=== PATIENT | male | born 1950 | race Caucasian/White ===

== ENCOUNTER 2022-08-17 04:15 | Emergency (ER) | payer BC, MEDICARE ==
[2022-08-17] MEDS ORDERED: KETOROLAC 15 MG/ML 1 ML VIAL IVP STA (04:34)
[2022-08-17] MEDS ORDERED: HYDROmorphone 0.5 MG/0.5 ML SYRINGE IVP STA ×2 (04:34→06:34)
--- NOTE | 2022-08-17 04:49 | ED ---
General Adult HPI - General Chief complaint: Abdominal Pain Stated complaint: Left Side abd pain Time Seen by Provider: 08/17/22 04:27 Source: patient, family, RN notes reviewed, old records reviewed Mode of arrival: ambulatory Limitations: no limitations - History of Present Illness Initial comments: 72 -year-old male presenting for evaluation of left flank pain. Pain began approximately 24 hours ago and has been intermittent. No dysuria or hematuria. Patient denies vomiting. No fever. - Related Data Home Medications Medication Instructions Recorded Confirmed Cyclobenzaprine [Flexeril] 10 mg PO DAILY 04/23/15 04/24/15 predniSONE [Deltasone] 20 mg PO DIRECTED 04/23/15 04/24/15 Previous Rx's Medication Instructions Recorded HYDROcodone/APAP 5-325MG [[place] 1 tab PO Q4HR PRN #18 tab 08/17/22 5-325] Allergies Allergy/AdvReac Type Severity Reaction Status Date / Time ciprofloxacin [From Cipro] Allergy Severe Rash/Hives Verified 08/17/22 04:22 ciprofloxacin HCl Allergy Severe Rash/Hives Verified 08/17/22 04:22 [From Cipro] Sulfa (Sulfonamide Allergy Severe Rash/Hives Verified 08/17/22 04:22 Antibiotics) Review of Systems ROS Statement: Those systems with pertinent positive or pertinent negative responses have been documented in the HPI. ROS Other: All systems not noted in ROS Statement are negative. Past Medical History Additional Past Medical History / Comment(s): arthritis in neck History of Any Multi-Drug Resistant Organisms: None Reported Past Surgical History: Orthopedic Surgery, Tonsillectomy Additional Past Surgical History / Comment(s): rotator cuff-left shoulder, Past Anesthesia/Blood Transfusion Reactions: No Reported Reaction Past Psychological History: No Psychological Hx Reported Smoking Status: Current every day smoker Past Alcohol Use History: Occasional Past Drug Use History: Marijuana - Past Family History Mother Family Medical History: No Reported History General Exam Limitations: no limitations General appearance: alert, in no apparent distress Head exam: Present: atraumatic, normocephalic Eye exam: Present: normal appearance, PERRL ENT exam: Present: normal exam Neck exam: Present: normal inspection. Absent: tenderness, meningismus Respiratory exam: Present: normal lung sounds bilaterally. Absent: respiratory distress, wheezes Cardiovascular Exam: Present: regular rate, normal rhythm GI/Abdominal exam: Present: soft. Absent: distended, tenderness, guarding Extremities exam: Present: normal inspection Back exam: Absent: CVA tenderness (R), CVA tenderness (L) Neurological exam: Present: alert, oriented X3, CN II-XII intact. Absent: motor sensory deficit Psychiatric exam: Present: normal affect, normal mood Skin exam: Present: warm, dry, intact. Absent: cyanosis, diaphoretic Course Vital Signs 08/17/22 04:23 Temperature 98.2 F Pulse Rate 67 Respiratory 18 Rate Blood Pressure 135/75 O2 Sat by Pulse 96 Oximetry - Reevaluation(s) Reevaluation #1: 08/17/22 07:13 CT urogram has been ordered, results pending Medical Decision Making - Medical Decision Making Was pt. sent in by a medical professional or institution (, [facility], [facility]ERY [facility], urgent care, hospital, or [facility]...) When possible be specific @ -No Did you speak to anyone other than the patient for history (EMS, parent, family, police, friend...)? What history was obtained from this source @ Patient's Did you review nursing and triage notes (agree or disagree)? Why? @ -I reviewed and agree with nursing and triage notes Were old charts reviewed (outside hosp., previous admission, EMS record, old EKG, old radiological studies, urgent care reports/EKG's, [facility] records)? Report findings @ -No old charts were reviewed Differential Diagnosis (chest pain, altered mental status, abdominal pain women, abdominal pain men, vaginal bleeding, weakness, fever, dyspnea, syncope, headache, dizziness, GI bleed, back pain, seizure, CVA, palpatations, mental health, musculoskeletal)? @ Differential Abdominal Pain Men: Appendicitis, cholecystitis, diverticulosis, ischemic bowel, pancreatitis, hepatitis, UTI, gastroenteritis, AAA, incarcerated hernia, bowel obstruction, constipation, inflammatory bowel, hepatitis, peptic ulcer disease, splenic infarction, perforated viscus, testicular torsion, this is not meant to be an all-inclusive list EKG interpreted by me (3pts min.). @ -As above X-rays interpreted by me (1pt min.). @ -None done CT interpreted by me (1pt min.). @ -Left sided hydronephrosis and hydroureter without definitive calcium containing stone, fullness in the left side of the bladder concerning for neoplasm U/S interpreted by me (1pt. min.). @ -None done What testing was considered but not performed or refused? (CT, X-rays, U/S, labs)? Why? @ -None What meds were considered but not given or refused? Why? @ -None Did you discuss the management of the patient with other professionals (professionals i.e. Dr., PA, HATCHERY MAN, lab, RT, psych nurse, clinical social work therapist, block cleaner, teacher, chief informatics officer, welfare case worker)? Give summary @ -Discussed the case with Dr. Penn, recommend CT urogram for better characterization and close outpatient follow-up. Was smoking cessation discussed for >3mins.? @ -No Was critical care preformed (if so, how long)? @ -No Were there social determinants of health that impacted care today? How? (Homelessness, low income, unemployed, alcoholism, drug addiction, transportation, low edu. Level, literacy, decrease access to med. care, usp, rehab)? @ -No Was there de-escalation of care discussed even if they declined (Discuss DNR or withdrawal of care, Hospice)? DNR status @ -No What co-morbidities impacted this encounter? (DM, HTN, Smoking, COPD, CAD, Cancer, CVA, ARF, Chemo, Hep., AIDS, mental health diagnosis, sleep apnea, morbid obesity)? @ Tobacco use Was patient admitted / discharged? Hospital course, mention meds given and route, prescriptions, significant lab abnormalities, going to OR and other pertinent info. @ -72-year-old male presenting for evaluation of left flank pain, history is concerning for renal colic. Workup was initiated including CBC, CMP, urinalysis. As well as KUB x-ray and CT abdomen and pelvis without contrast. There is a fullness in the left side of the bladder and left hydroureter and hydronephrosis. After discussion with urology CT urogram has been ordered these results are pending. The patient will be given [place] for pain control and will have close outpatient follow-up with urology. Undiagnosed new problem with uncertain prognosis? @ -No Drug Therapy requiring intensive monitoring for toxicity (Heparin, Nitro, Insulin, Cardizem)? @ -No Were any procedures done? @ -No Diagnosis/symptom? @ Bladder mass, hydronephrosis Acute, or Chronic, or Acute on Chronic? @ Acute Uncomplicated (without systemic symptoms) or Complicated (systemic symptoms)? @ -default Side effects of treatment? @ -No Exacerbation, Progression, or Severe Exacerbation? @ -No Poses a threat to life or bodily function? How? (Chest pain, USA, VT, pneumonia, PE, COPD, DKA, ARF, appy, cholecystitis, CVA, Diverticulitis, Homicidal, Suicidal, threat to staff... and all critical care pts) @ -[Yes, concerning for neoplasm - Lab Data Result diagrams: 08/17/22 05:00 08/17/22 05:00 Lab Results 08/17/22 08/17/22 08/17/22 Range/Units 05:00 05:00 05:00 WBC 12.4 H (3.8-10.6) k/uL RBC 5.74 (4.30-5.90) m/uL Hgb 18.2 H (13.0-17.5) gm/dL Hct 53.7 H (39.0-53.0) % MCV 93.6 (80.0-100.0) fL MCH 31.8 (25.0-35.0) pg MCHC 34.0 (31.0-37.0) g/dL RDW 13.1 (11.5-15.5) % Plt Count 173 (150-450) k/uL MPV 8.1 Neutrophils % 86 % Lymphocytes % 8 % Monocytes % 4 % Eosinophils % 1 % Basophils % 0 % Neutrophils # 10.6 H (1.3-7.7) k/uL Lymphocytes # 1.0 (1.0-4.8) k/uL Monocytes # 0.5 (0-1.0) k/uL Eosinophils # 0.1 (0-0.7) k/uL Basophils # 0.0 (0-0.2) k/uL Sodium 138 (137-145) mmol/L Potassium 4.5 (3.5-5.1) mmol/L Chloride 105 (98-107) mmol/L Carbon Dioxide 20 L (22-30) mmol/L Anion Gap 13 mmol/L BUN 26 H (9-20) mg/dL Creatinine 1.27 H (0.66-1.25) mg/dL Est GFR (CKD-EPI)AfAm 65 (>60 ml/min/1.73 sqM) Est GFR (CKD-EPI)NonAf 56 (>60 ml/min/1.73 sqM) Glucose 118 H (74-99) mg/dL Calcium 9.6 (8.4-10.2) mg/dL Total Bilirubin 1.1 (0.2-1.3) mg/dL AST 31 (17-59) U/L ALT 19 (4-49) U/L Alkaline Phosphatase 94 (38-126) U/L Total Protein 7.6 (6.3-8.2) g/dL Albumin 4.5 (3.5-5.0) g/dL Urine Color Yellow Urine Appearance Clear (Clear) Urine pH 5.0 (5.0-8.0) Ur Specific [place] 1.015 (1.001-1.035) Urine Protein Trace H (Negative) Urine Glucose (UA) Negative (Negative) Urine Ketones 2+ H (Negative) Urine Blood Moderate H (Negative) Urine Nitrite Negative (Negative) Urine Bilirubin Negative (Negative) Urine Urobilinogen <2.0 (<2.0) mg/dL Ur Leukocyte Esterase Trace H (Negative) Urine RBC 24 H (0-5) /hpf Urine WBC 8 H (0-5) /hpf Ur Squamous Epith Cells 1 (0-4) /hpf Urine Mucus Occasional H (None) /hpf Disposition Clinical Impression: Hydronephrosis, Bladder mass Disposition: HOME SELF-CARE Condition: Fair Instructions (If sedation given, give patient instructions): Hydronephrosis (ED) Additional Instructions: Please follow up with urology Prescriptions: HYDROcodone/APAP 5-325MG [[place] 5-325] 1 tab PO Q4HR PRN #18 tab PRN Reason: Pain Is patient prescribed a controlled substance at d/c from ED?: No Referrals: None,Stated [Primary Care Provider] - 1-2 days Car Penn MD [STAFF PHYSICIAN] - 1-2 days Time of Disposition: 07:30
[2022-08-17 05:14] LABS: Appearance,Urine Clear (Clear); Bilirubin,Urine Negative (Negative); Blood,Urine Moderate (Negative); Color,Urine Yellow; Glucose,Urine (UA) Negative (Negative); Ketones,Urine 2+ (Negative); Leukocyte Esterase,Urine Trace (Negative); Nitrite,Urine Negative (Negative); Protein,Urine Trace (Negative); Specific Gravity,Urine 1.015 (1.001-1.035); Urobilinogen,Urine <2.0 mg/dL (<2.0)
[2022-08-17 05:15] LABS: Basophils % (A) 0 %; Eosinophils # (A) 0.1 k/uL (0-0.7); Eosinophils % (A) 1 %; HCT 53.7 % (39.0-53.0); HGB 18.2 gm/dL (13.0-17.5); Lymphocytes % (A) 8 %; MCH 31.8 pg (25.0-35.0); MCV 93.6 fL (80.0-100.0); Mean Platelet Volume 8.1; Monocytes # (A) 0.5 k/uL (0-1.0); Monocytes % (A) 4 %; Mucus,Urine Occasional /hpf; Neutrophils # (A) 10.6 k/uL (1.3-7.7); Neutrophils % (A) 86 %; Platelet Count 173 k/uL (150-450); RBC 5.74 m/uL (4.30-5.90); RBC,Urine 24 /hpf (0-5); RDW 13.1 % (11.5-15.5); Squamous Epithelial Cell,Urine 1 /hpf (0-4); WBC 12.4 k/uL (3.8-10.6); WBC,Urine 8 /hpf (0-5)
[2022-08-17 05:26] LABS: Albumin 4.5 g/dL (3.5-5.0); Calcium 9.6 mg/dL (8.4-10.2); Potassium 4.5 mmol/L (3.5-5.1); Total Bilirubin 1.1 mg/dL (0.2-1.3); Total Protein 7.6 g/dL (6.3-8.2)
[2022-08-17] MEDS ORDERED: SODIUM CHLORIDE 0.9% 1,000 ML IV ONE (05:27)
--- NOTE | 2022-08-17 06:29 | CT ---
EXAM: CT Abdomen and Pelvis Without Intravenous Contrast CLINICAL HISTORY: left flank pain TECHNIQUE: Axial computed tomography images of the abdomen and pelvis without intravenous contrast. CTDI is 11.8 mGy and DLP is 734 mGy-cm. This CT exam was performed using one or more of the following dose reduction techniques: automated exposure control, adjustment of the mA and/or kV according to patient size, and/or use of iterative reconstruction technique. COMPARISON: No relevant prior studies available. FINDINGS: Lung bases: Bibasilar atelectasis. Calcified granulomas are noted within both lower lobes. ABDOMEN: Liver: Unremarkable. Gallbladder and bile ducts: Unremarkable. No calcified stones. No ductal dilation. Pancreas: Unremarkable. No ductal dilation. Spleen: Unremarkable. No splenomegaly. Adrenals: Unremarkable. No mass. Kidneys and ureters: Mild/moderate left-sided hydronephrosis without evidence of an obstructing ureteral stone. There appears to be eccentric left-sided urinary bladder wall thickening suggesting underlying malignancy. Stomach and bowel: Severe colonic diverticulosis, predominantly involving the sigmoid segment. No obstruction. No mucosal thickening. PELVIS: Appendix: No findings to suggest acute appendicitis. Bladder: See above Reproductive: Prostatomegaly, measuring up to 5.6 cm in greatest transverse dimension. ABDOMEN and PELVIS: Intraperitoneal space: Unremarkable. No free air. No significant fluid collection. Bones/joints: Evaluation of the osseous structures demonstrates moderate degenerative changes. Mild dextroscoliosis of the lumbar spine. No acute fracture. No dislocation. Soft tissues: Tiny bilateral fat-containing inguinal hernias. Vasculature: Moderate atherosclerotic vascular calcifications involving the intra-abdominal aorta and the iliac branches. Infrarenal aorta is at the upper limits of normal, measuring 2.5 cm in diameter. Lymph nodes: No significant adenopathy, allowing for lack of IV contrast. IMPRESSION: 1. Mild/moderate left-sided hydronephrosis without evidence of an obstructing ureteral stone. There appears to be eccentric left-sided urinary bladder wall thickening suggesting underlying malignancy. Nonemergent hematuria protocol CT is recommended for further evaluation. 2. Prostatomegaly. Correlate with PSA. 3. Severe colonic diverticulosis, predominantly involving the sigmoid segment. 4. Other findings as above.
--- NOTE | 2022-08-17 06:51 | XR ---
EXAM: XR Abdomen, 1 View CLINICAL HISTORY: abdominal pain TECHNIQUE: Frontal supine view of the abdomen/pelvis. COMPARISON: CT of the abdomen/pelvis performed after this exam. FINDINGS/IMPRESSION: Please refer to the comparison study.
[2022-08-17 08:19] VITALS: BP 138/86; PULSE 53; RESP 19; TEMP 97.3
--- NOTE | 2022-08-17 09:01 | CT ---
EXAMINATION TYPE: CT urogram wo/w con DATE OF EXAM: 08/17/2022 COMPARISON: CT earlier today. HISTORY: Bladder mass with left-sided hydronephrosis. Recent abnormal CT. CT DLP: 1523 mGycm, Automated Exposure Control for Dose Reduction was Utilized. CONTRAST: CT scan of the abdomen and pelvis is performed without oral and with IV Contrast, patient injected wi th 100 mL of Isovue 370. Urogram protocol with 3-D reconstructed images created on an independent wor kstation and reviewed. FINDINGS: KUB: Noncontrast images earlier today showed no renal calculi bilaterally. Postcontrast images show s ymmetric cortical medullary uptake and excretion with persistent mild to moderate left-sided hydronep hrosis. No right-sided hydronephrosis. There is a 5 mm simple appearing thin-walled cyst laterally le ft kidney coronal image 68 series 302. Incomplete opacification of the bilateral ureters particularly left ureter. No obstructing calculi clearly seen. Distal right ureter jet is seen. Distal left jet n ot identified. Abnormal soft tissue density in the distal left ureter right before bladder orifice ov er roughly 1.4 cm length axial image 79 series 301. No definitive intraluminal bladder mass. There is enlarged lobulated prostate bulging on the posterior inferior bladder base making evaluation slightl y suboptimal. LUNG BASES: Worsening dependent atelectasis on current study. Posterior calcified nodules are benign granulomas are incidentally redemonstrated. LIVER/GB: There is subcentimeter low dense lesion axial image 20 series 201 that is too small to furt her characterize but presumed benign. PANCREAS: No significant abnormality is seen. SPLEEN: Upper limits of normal in size. ADRENALS: No significant abnormality is seen. BOWEL: Sigmoid colonic diverticulosis redemonstrated. PROSTATE/SEMINAL VESICLES: Enlarged lobulated prostate consistent with BPH. LYMPH NODES: No greater than 1cm abdominal or pelvic lymph nodes are appreciated. OSSEOUS STRUCTURES: Scoliosis is present. Moderate to severe disc space narrowing and spurring and va cuum disc phenomenon at left L1-L2, left L2-L3, and right L4-L5 levels. OTHER: Moderate mixed plaque in infrarenal abdominal aorta extends into iliac branch vessels. Small f at-containing umbilical hernia IMPRESSION: Persistent mild to moderate left-sided hydronephrosis without delayed excretion. Enlarged prostate consistent with BPH is redemonstrated. Abnormal soft tissue in the distal left ureter right before UVJ. Differential includes blood clot but neoplasm or transitional cell carcinoma needs to be excluded and further investigation with direct visualization is advised. No definitive bladder mass. No abnormal adenopathy or metastatic disease.
== END 2022-08-17 08:48 | disposition home or self-care (01) ==
LOC: EC 04:15
DX: N13.30 Unspecified hydronephrosis (principal); N32.9 Bladder disorder, unspecified; F17.200 Nicotine dependence, unspecified, uncomplicated; F12.90 Cannabis use, unspecified, uncomplicated; Z88.1 Allergy status to other antibiotic agents; Z88.2 Allergy status to sulfonamides
CPT/HCPCS: 99284 ×2; 96374 ×2; 96375 ×2; 96376 ×2; 96361 ×2; 36415; 80053; 85025; 81001; 74018; 74176; 74178; 74400; J1885; J1170; Q9967

== ENCOUNTER → 2022-09-16 | Outpatient (CLI) | payer MEDICARE ==
--- NOTE | 2022-09-18 09:44 | PE ---
EXAMINATION TYPE: PET CT fusion skull to thigh DATE OF EXAM: 09/16/2022 CLINICAL INDICATION:Male, 72 years old with history of C61; TECHNIQUE: Following the intravenous administration of 6.18 mCi of Ga-68 Illuccix (PSMA), whole bod y images are performed from the skull base to the midthigh. Images are reviewed on the computer in t he coronal, axial, and sagittal planes. Reconstructed rotating images are created on independent wor kstation and reviewed on the computer. A non-contrast CT is performed in conjunction with the PET s can. COMPARISON: CT 08/17/2022, PET/CT None, FINDINGS: Mediastinal SUV mean is 0.5. Hepatic parenchyma SUV mean is 2.8. SKULL BASE AND NECK: No suspicious radiotracer activity. CHEST, MEDIASTINUM, AND HILAR REGION: No suspicious radiotracer activity. ABDOMEN AND PELVIS: * Left prostate gland activity max SUV 26.6. Measuring 2.9 x 1.6 cm. * Pelvic lymph nodes with abnormal FDG activity including right external iliac lymph node measuring 14 mm Max SUV 19.2 * Left external iliac lymph node measuring 14 mm and max SUV 11.3 MUSCULOSKELETAL STRUCTURES: Scattered abnormal uptake throughout the osseous structures. Example incl udes: * Left skull base left temporal bone max SUV 10.9. * Right scapula max SUV 6.6. * Left scapula max SUV 11.9. * Right glenoid and max SUV 17.0. * Left glenoid max SUV 11.6. * Right rib 8 Max SUV 7.6. * Right sacrum max SUV 21.9. * Left iliac bone max SUV 21.1. * Right iliac bone max SUV 14.7. * Left femur max SUV 12.9. * Right femur max SUV 12.6. * Right inferior pubic ramus max SUV 16.3. * L5 vertebral body max SUV 21.4. * T10 vertebral body max is a 34.9. OTHER CT: Atherosclerosis of the arterial vasculature. Left ureteral stent with tips in appropriate p osition. Colonic diverticulosis. Estimated gland is enlarged. The heart is mildly enlarged for size. Mild emphysema changes. Posterior dependent atelectasis/scarring. 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
== END | disposition home or self-care (01) ==
LOC: RADPETMAIN 10:13
PROVIDERS: ATTEND Urology
DX: C61 Malignant neoplasm of prostate (principal); R59.0 Localized enlarged lymph nodes
CPT/HCPCS: 78815; A9596

== ENCOUNTER → 2023-01-03 | Outpatient (CLI) | payer MEDICARE ==
--- NOTE | 2023-01-03 13:30 | US ---
EXAMINATION TYPE: US venous doppler duplex LE DATE OF EXAM: 01/03/2023 1:21 PM COMPARISON: NONE CLINICAL INDICATION: Male, 72 years old with history of M79.661, M79.662 pain, R22.41, R22.42; edema on chemo SIDE PERFORMED: Bilateral TECHNIQUE: The lower extremity deep venous system is examined utilizing real time linear array sonog efrain with graded compression, doppler sonography and color-flow sonography. VESSELS IMAGED: Common Femoral Vein Deep Femoral Vein Greater Saphenous Vein * Femoral Vein Popliteal Vein Small Saphenous Vein * Proximal Calf Veins (* superficial vessels) Grayscale, color doppler, spectral doppler imaging performed of the deep veins of the lower extremiti es. There is normal flow, compressibility, vascular waveforms. Right Leg: Negative for DVT Left Leg: Negative for DVT IMPRESSION: No deep venous thrombosis of the bilateral lower extremities.
== END | disposition home or self-care (01) ==
LOC: RADUSWWP 12:59
PROVIDERS: ATTEND Internal Medicine Hematology & Oncology
DX: M79.661 Pain in right lower leg (principal); M79.662 Pain in left lower leg
CPT/HCPCS: 93970

== ENCOUNTER → 2023-01-27 | Outpatient (CLI) | payer MEDICARE ==
[~2023-01-27] MED LIST: FUROSEMIDE 10 MG/ML 2 ML VIAL IV ONE
--- NOTE | 2023-01-27 14:36 | NM ---
EXAMINATION TYPE: NM lasix renogram DATE OF EXAM: 01/27/2023 COMPARISON: NONE CLINICAL INDICATION: Male, 72 years old with history of N13.30 HYDRONEPHROSIS; Following administration of 10.74 mCi Tc 99m MAG3 with 20mg Lasix. Immediate images post injection FINDINGS: Left: 26.7 %. Right: 73.3 %. Max renal flow left: 6.5 minutes. Max renal flow right: 5.5 minutes. Satisfactory accumulation of radiotracer within both renal collecting systems. After the administrati on of Lasix, there is prompt excretion from both collecting systems. T 1/2 left: NA minutes. T 1/2 right: 17.2 minutes. IMPRESSION: 1. Markedly abnormal split renal function of 73.3% on the right and 26.7% on the left. 2. Markedly abnormal time activity curve of the left kidney with delayed uptake, and delayed excretio n. 3. Left hydronephrosis
== END | disposition home or self-care (01) ==
LOC: RADNMMAIN 12:40
PROVIDERS: ATTEND Urology
DX: N13.30 Unspecified hydronephrosis (principal)
CPT/HCPCS: 78708; A9562

== ENCOUNTER → 2023-06-09 | Outpatient (CLI) | payer MEDICARE ==
--- NOTE | 2023-06-09 14:51 | NM ---
EXAMINATION TYPE: NM lasix renogram DATE OF EXAM: 06/09/2023 COMPARISON: 01/27/2023 CLINICAL INDICATION: Male, 72 years old with history of N13.30 UNSPECIFIED HYDRONEPHROSIS; Following administration of 10 mCi Tc 99m MAG3 with 20mg Lasix. Immediate images post injection FINDINGS: Left: 14 %. Right: 86 %. Max renal flow left: 17 minutes. Max renal flow right: 2.5 minutes. Satisfactory accumulation of radiotracer within both renal collecting systems. After the administrati on of Lasix, there is prompt excretion from both collecting systems. T 1/2 left: NA minutes. T 1/2 right: NA minutes. IMPRESSION: 1. Markedly abnormal split renal function of 86 % on the right and 14 % on the left which has worsene d from prior. 2. Markedly abnormal time activity curve of the left kidney with delayed uptake, and delayed excretio n.
== END | disposition home or self-care (01) ==
LOC: RADNMMAIN 12:53
PROVIDERS: ATTEND Urology
DX: N13.30 Unspecified hydronephrosis (principal)
CPT/HCPCS: 78708; A9562

== ENCOUNTER → 2023-06-16 | Outpatient (CLI) | payer MEDICARE ==
[2023-06-16 12:45] LABS: African American GFR (CKD) 38 (>60 ml/min/1.73 sqM); Blood Urea Nitrogen 31 mg/dL (9-20); Non-African American GFR(CKD) 33 (>60 ml/min/1.73 sqM)
== END | disposition home or self-care (01) ==
LOC: RADCTMAIN 12:00
PROVIDERS: ATTEND Urology
DX: N13.30 Unspecified hydronephrosis (principal)
CPT/HCPCS: 82565; 84520

== ENCOUNTER → 2023-07-14 | Outpatient (CLI) | payer MEDICARE ==
--- NOTE | 2023-07-14 13:15 | CT ---
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 CT DLP: 604.3 mGycm. Automated exposure control for dose reduction was used. TECHNIQUE: Contiguous axial scanning of the abdomen and pelvis without IV contrast. Coronal and sagit isabel reconstructions performed. FINDINGS: Heart normal size without pericardial effusion. Some stranding groundglass changes in the lower lungs are unchanged, probably chronic scarring. Mild emphysematous change. Calcified granulomas right base in keeping with prior granulomatous disease. Small hiatal hernia. At least mild fatty infiltration of the liver. Tiny calcified granuloma posterior right liver lobe. Noncontrast appearance of the gallbladder, adrenal glands, right kidney, and pancreas show no gross e valuate by noncontrast CT. Thickened spleen at 5.7 cm versus 4.8 cm, previously. There is moderate distention of the left renal collecting system with a left ureteral stent in place. The proximal loop of the stent appears to be pulled down to the UPJ region. Prominent air distending throughout the left renal collecting system and left ureter. The distal loop of the left ureteral st ent has been pulled further into the bladder. Mild circumferential bladder wall thickening. There is nondependent air within the lumen of the bladd er and focal fistulous communication seen from the underside of the mid sigmoid colon to the left pos terior bladder dome, refer to coronal image 62 and axial images 75 through 77. Colonic diverticulosis with mild to moderate stool burden. No dilated small bowel, free fluid, or hill e air. Normal air-filled appendix. No mesenteric, retroperitoneal, or pelvic adenopathy by CT size criteria. We note that the lymph node s were very small on the patient's 09/16/2022 PET/CT as well. Bones: Diffuse sclerotic osseous metastases redemonstrated. Degenerative dextro convex scoliosis lumb ar spine. IMPRESSION: 1. Moderate air dilatation of the left renal collecting system and left ureter. As a result, the ind welling left ureteral stent has pulled down with the proximal loop located at the UPJ and distal loop further in the bladder. 2. Air within the bladder and left ureter secondary to colovesical fistula from the inferior margin of the mid sigmoid colon to the left posterior bladder dome. 3. Known diffuse sclerotic osseous metastases. No progressive lymphadenopathy or other abnormal soft tissue is identified. The previous soft tissue at the distal left ureter appears to have shown impro vement.
== END | disposition home or self-care (01) ==
LOC: RADCTMAIN 10:08
PROVIDERS: ATTEND Urology
DX: C79.51 Secondary malignant neoplasm of bone (principal); C80.1 Malignant (primary) neoplasm, unspecified; N32.1 Vesicointestinal fistula; N28.89 Other specified disorders of kidney and ureter; N32.89 Other specified disorders of bladder; Z96.0 Presence of urogenital implants
CPT/HCPCS: 74176

== ENCOUNTER → 2023-07-27 | Outpatient (CLI) | payer MEDICARE ==
--- NOTE | 2023-07-27 11:03 | XR ---
EXAMINATION TYPE: XR tibia fibula LT DATE OF EXAM: 07/27/2023 10:45 AM CLINICAL INDICATION:Male, 73 years old with history of C61 PROSTATE CA; COMPARISON: None TECHNIQUE: XR tibia fibula LT; tibia/fibula was examined in AP and lateral projections. FINDINGS: No evidence of any acute osseous pathology, joint dislocation, or soft tissue swelling is n oted. IMPRESSION: No evidence of acute fracture.
[2023-07-27 11:23] LABS: African American GFR (CKD) 50 (>60 ml/min/1.73 sqM); Blood Urea Nitrogen 34 mg/dL (9-20); Non-African American GFR(CKD) 43 (>60 ml/min/1.73 sqM)
--- NOTE | 2023-07-27 12:53 | CT ---
EXAMINATION TYPE: CT ChestAbdPelvis wo con CT DLP: 683.80 mGycm, Automated exposure control for dose reduction was used. DATE OF EXAM: 07/27/2023 12:40 PM COMPARISON: 07/14/2023, PET/CT 09/16/2022 CLINICAL INDICATION:Male, 73 years old with history of C61 PROSTATE CA; PHH, f/u prostate cancer Technique: CT ChestAbdPelvis wo con; Multiple axial images were obtained. Two-dimensional coronal and sagittal reconstructions were obtained. Contrast used: mL of , none Oral contrast used: with Oral Contrast Findings: CHEST: LUNGS/ PLEURA: Mild centrilobular emphysema changes are seen throughout the lungs. No new or enlargin g pulmonary nodules. No focal consolidation, pneumothorax or pleural effusion. Bilateral lower lobe c alcified granulomas. AIRWAY: Patent and unremarkable. HEART: Size within normal limits. Mild coronary artery calcifications. MEDIASTINUM: No gross evidence of adenopathy. VASCULATURE: No aortic aneurysm. MUSCULOSKELETAL: No acute osseous abnormalities. Scattered sclerotic metastatic foci throughout the o sseous structures. SOFT TISSUES/LYMPH NODES: Unremarkable. LOWER NECK: No significant findings. ABDOMEN: ABDOMEN LIVER: Unremarkable GALLBLADDER AND BILE DUCTS: Unremarkable. PANCREAS: Unremarkable. SPLEEN: Unremarkable. ADRENAL GLANDS: Unremarkable. KIDNEYS AND URETERS: Is dilation of the left collecting system with gas within and around the left pr oximal kidney. Left ureteral stent is in satisfactory position. PELVIS BLADDER: Gas is seen within the bladder lumen inferior stent pigtail in the bladder lumen. Ureteral t ip and similar position to prior. REPRODUCTIVE: Unremarkable. ABDOMEN & PELVIS STOMACH AND BOWEL: No evidence of bowel obstruction. Appendix is normal the lumen demonstrates gas. S cattered colonic diverticulosis. PERITONEUM: No evidence of pneumoperitoneum or free fluid. VASCULATURE: No evidence of aortic aneurysm. MUSCULOSKELETAL: Scattered sclerotic osseous metastatic foci seen throughout the exam. LYMPH NODES: No gross evidence for lymphadenopathy. SOFT TISSUE/ABDOMINAL WALL: Fat-containing bilateral inguinal hernias. IMPRESSION: 1. Extensive progression of Diffuse osseous metastatic disease with sclerotic foci throughout the os seous structures compared to 09/16/2022 2. Left ureteral stent with gas within the left renal collecting system. This is not significantly c hanged from prior exam. Correlate with recent instrumentation. Recent summation patient hasn't been p erformed correlate for ascending infection such as emphysematous pyelitis. 3. Colonic diverticulosis. 4. Fat-containing inguinal hernias. 5. Mild emphysema changes.
--- NOTE | 2023-07-28 07:48 | NM ---
EXAMINATION TYPE: NM bone scan whole body DATE OF EXAM: 07/27/2023 COMPARISON: CT 07/27/2023 CLINICAL INDICATION: Male, 73 years old with history of C61 PROSTATE CA; Delayed whole-body scanning was performed following the injection of 22.4 mCi Tc 99m MDP. Images acq uired 3 hours post injection. FINDINGS: There are scattered areas of abnormal uptake involving the rib cage, proximal femur, pelvic bones and vertebral column concordant with the CT findings of metastatic disease. Abnormal uptake involving th e shoulders\scapula low intensity but concordant with metastases. Abnormal uptake involving the wrists, right ankle and medial left knee most likely post arthritic. IMPRESSION: Diffuse osseous metastases concordant with CT scan.
== END | disposition home or self-care (01) ==
LOC: RADNMMAIN 10:13
PROVIDERS: ATTEND Internal Medicine Hematology & Oncology
DX: Z03.89 Encounter for observation for other suspected diseases and conditions ruled out (principal); C79.51 Secondary malignant neoplasm of bone; C61 Malignant neoplasm of prostate; J43.2 Centrilobular emphysema; K57.30 Diverticulosis of large intestine without perforation or abscess without bleeding; K40.90 Unilateral inguinal hernia, without obstruction or gangrene, not specified as recurrent; G89.3 Neoplasm related pain (acute) (chronic); Z96.0 Presence of urogenital implants
CPT/HCPCS: 82565; 84520; 73590; 71250; 74176; 36415; 78306; A9503

== ENCOUNTER → 2024-01-26 | Outpatient (CLI) | payer MEDICARE ==
[2024-01-26 10:33] LABS: African American GFR (CKD) 51 (>60 ml/min/1.73 sqM); Blood Urea Nitrogen 34 mg/dL (9-20); Non-African American GFR(CKD) 44 (>60 ml/min/1.73 sqM)
--- NOTE | 2024-01-26 12:13 | CT ---
EXAMINATION TYPE: CT ChestAbdPelvis w con DATE OF EXAM: 01/26/2024 COMPARISON: 07/27/2023 HISTORY: hx of prostate ca. pt had a tumor removed from his bladder and has a stent up to his kidneys . CT DLP: 1896 mGycm Automated exposure control for dose reduction was used. CONTRAST: CT scan of the chest, abdomen and pelvis is performed with Oral Contrast and with IV Contrast, patien t injected with 80ml mL of Isovue 300. FINDINGS: CT chest: There are moderate emphysematous changes. There is no suspicious lung mass or nodule. There is no abnormal airspace/consolidative density or abnormal interstitial density. There is no pleural effusion, pleural thickening or pneumothorax. The great vessels and chest are normal. There is a stable single low density 12 mm prevascular lymph node. There are multiple sclerotic lesions in the thoracic spine and sternum and multiple ribs consistent w ith metastatic prostate cancer. There are no pathological fractures. CT abdomen and pelvis: Gallbladder is normal without distention, pericholecystic fluid, wall thickening or gallstone. There is no biliary ductal dilatation. There is no focal mass or organomegaly involving the liver, pancreas, spleen or adrenal glands. There is steatosis of the liver. There is no solid renal mass or hydronephrosis. The left kidney is mildly atrophic and there is a lef t double-J ureteral stent and chronic hydronephrosis and hydroureter on the left. The right kidney is unremarkable. There is no retroperitoneal adenopathy or hemorrhage in the caliber of the abdominal aorta is normal. The bowel loops are normal in caliber and there is no dilatation or obstruction. No inflammatory calhoun ges identified in the bowel wall and mesentery. There is no free intracranial air or fluid. There is no pelvic mass or adenopathy. There is no free fluid within the pelvis. There are multiple sclerotic metastasis within the lumbar spine, pelvis and hips but no pathological fracture. Soft tissue the abdomen and pelvis are normal. IMPRESSION: 1. Diffuse sclerotic metastasis in all of the visualized osseous structures. There are no pathologica l fractures. 2. Stable 12 mm prevascular mediastinal lymph node. 3. Moderate diffuse emphysematous changes but no suspicious lung mass nodule or airspace consolidatio n. 4. Mild left renal atrophy and left ureteral stent. Chronic left hydronephrosis and hydroureter. 5. Liver steatosis [facility], , 01/26/2024 12:11 PM
== END | disposition home or self-care (01) ==
LOC: RADCTMAIN 09:36
PROVIDERS: ATTEND Internal Medicine Hematology & Oncology
DX: C61 Malignant neoplasm of prostate (principal); G89.3 Neoplasm related pain (acute) (chronic); K76.0 Fatty (change of) liver, not elsewhere classified; N26.1 Atrophy of kidney (terminal); N13.39 Other hydronephrosis; N13.4 Hydroureter
CPT/HCPCS: 82565; 84520; 71260; 74177; 36415; Q9967

== ENCOUNTER → 2024-01-30 | Outpatient (CLI) | payer MEDICARE ==
--- NOTE | 2024-01-30 15:08 | NM ---
EXAMINATION TYPE: NM bone scan whole body DATE OF EXAM: 01/30/2024 COMPARISON: 07/27/2023, CT scan 01/26/2024 CLINICAL INDICATION: Male, 73 years old with history of C61 PROSTATE CA; Delayed whole-body scanning was performed following the injection of 20.5 mCi Tc 99m MDP. Images acq uired 5.5 hours post injection. FINDINGS: Numerous areas of focal abnormal uptake throughout the vertebral column, sacrum and pelvis, bilateral proximal femur are concordant with CT findings of bony metastases. Faint areas of abnormal signal throughout the bilateral rib cage, bilateral shoulder also concordant with bony metastases. Abnormal uptake involving the wrists, feet and the left kidney are most typical of arthritic changes. Findings compatible CT finding of left-sided hydronephrosis. IMPRESSION: Abnormal uptake throughout the rib cage, pelvis and vertebral column compatible with bony metastasis and concordant with CT findings [facility], , 01/30/2024 3:06 PM
== END | disposition home or self-care (01) ==
LOC: RADNMMAIN 07:27
PROVIDERS: ATTEND Internal Medicine Hematology & Oncology
DX: C61 Malignant neoplasm of prostate (principal); G89.3 Neoplasm related pain (acute) (chronic); C79.89 Secondary malignant neoplasm of other specified sites
CPT/HCPCS: 78306; A9503

== ENCOUNTER 2024-10-20 12:26 | Emergency (ER) | payer MEDICARE ==
[2024-10-20 12:44] VITALS: BP 129/78; PULSE 64; RESP 20; TEMP 98.7
--- NOTE | 2024-10-20 13:50 | ED ---
Extremity Problem HPI - General Chief complaint: Extremity Problem,Nontraumatic Stated complaint: Servando foot issue Time Seen by Provider: 10/20/24 13:40 Source: patient, RN notes reviewed Mode of arrival: ambulatory Limitations: no limitations - History of Present Illness Initial comments: 74-year-old male with history of stage IV prostate cancer presenting with for bilateral leg redness x 1 day. reports patient has been struggling with swollen legs. He is on Lasix 20 mg daily and was told by his oncologist Dr. Blanco to wear compression socks. States he was scratched by his cat a couple of days ago on the top of his left foot which has becoming more red over the past couple of days. He also reports sores and redness throughout his bi lateral lower legs. Denies chest pain, shortness of breath, fevers. He is undergoing 2 oral medications for his cancer however he is not currently undergoing chemo or radiation. Denies blood thinners. - Related Data Home Medications Medication Instructions Recorded Confirmed Cyclobenzaprine [Flexeril] 10 mg PO DAILY 04/23/15 04/24/15 predniSONE [Deltasone] 20 mg PO DIRECTED 04/23/15 04/24/15 Previous Rx's Medication Instructions Recorded HYDROcodone/APAP 5-325MG [[place] 1 - 2 tab PO Q6HR PRN #18 tab 08/17/22 5-325] clindamycin HCL 300 mg PO QID #40 cap 10/20/24 Allergies Allergy/AdvReac Type Severity Reaction Status Date / Time ciprofloxacin [From Cipro] Allergy Severe Rash/Hives Verified 10/20/24 12:44 ciprofloxacin HCl Allergy Severe Rash/Hives Verified 10/20/24 12:44 [From Cipro] Sulfa (Sulfonamide Allergy Severe Rash/Hives Verified 10/20/24 12:44 Antibiotics) Review of Systems ROS Statement: Those systems with pertinent positive or pertinent negative responses have been documented in the HPI. ROS Other: All systems not noted in ROS Statement are negative. Past Medical History Past Medical History: Cancer Additional Past Medical History / Comment(s): arthritis in neck, Prostate CA, Bone CA History of Any Multi-Drug Resistant Organisms: None Reported Past Surgical History: Orthopedic Surgery, Tonsillectomy Additional Past Surgical History / Comment(s): rotator cuff-left shoulder, Past Anesthesia/Blood Transfusion Reactions: No Reported Reaction Past Psychological History: No Psychological Hx Reported Smoking Status: Current every day smoker Past Alcohol Use History: Occasional Past Drug Use History: Marijuana - Past Family History Mother Family Medical History: No Reported History General Exam Limitations: no limitations General appearance: alert, in no apparent distress Head exam: Present: atraumatic, normocephalic, normal inspection Eye exam: Present: normal appearance, PERRL, EOMI. Absent: scleral icterus, conjunctival injection, periorbital swelling Respiratory exam: Present: normal lung sounds bilaterally. Absent: respiratory distress, wheezes, rales, rhonchi, stridor Cardiovascular Exam: Present: regular rate, normal rhythm, normal heart sounds. Absent: systolic murmur, diastolic murmur, rubs, gallop, clicks GI/Abdominal exam: Present: soft, normal bowel sounds. Absent: distended, tenderness, guarding, rebound, rigid Extremities exam: Present: full ROM, tenderness, normal capillary refill, pedal edema. Absent: normal inspection (Bilateral lower extremities remarkable for 3+ pitting edema in bilateral lower extremities with petechiae and warmth. There is a deep superficial abrasion present on dorsal aspect of left foot with surrounding erythema and warmth), joint swelling, calf tenderness Back exam: Present: normal inspection Neurological exam: Present: alert, oriented X3 Psychiatric exam: Present: normal affect, normal mood Skin exam: Present: warm, dry, intact, normal color Course Vital Signs 10/20/24 12:41 Temperature 98.7 F Pulse Rate 64 Respiratory 20 Rate Blood Pressure 129/78 O2 Sat by Pulse 97 Oximetry Medical Decision Making - Medical Decision Making Was pt. sent in by a medical professional or institution (Dr. PA, BRANCH RENTAL MANAGER, urgent care, hospital, or custodial...) When possible be specific @ -No Did you speak to anyone other than the patient for history (EMS, parent, family, police, friend...)? What history was obtained from this source @ - supplemented history Did you review nursing and triage notes (agree or disagree)? Why? @ -I reviewed and agree with nursing and triage notes Were old charts reviewed (outside hosp., previous admission, EMS record, old EKG, old radiological studies, urgent care reports/EKG's, custodial records)? Report findings @ -No old charts were reviewed Differential Diagnosis (chest pain, altered mental status, abdominal pain women, abdominal pain men, vaginal bleeding, weakness, fever, dyspnea, syncope, headache, dizziness, GI bleed, back pain, seizure, CVA, palpatations, mental health, musculoskeletal)? @ -Differential Musculoskeletal Muscular strain, contusion, ligament sprain, fracture, arthritis, septic a rthritis, bursitis, cellulitis, muscle spasm, nerve compression, DVT, arterial occlusion, herpes zoster, electrolyte abnormality, tumor.... This is not meant to be in all inclusive list EKG interpreted by me (3pts min.). @ -As above X-rays interpreted by me (1pt min.). @ -Chest x-ray reveals linear opacity in right hilar region could reflect atelectasis or pneumonia CT interpreted by me (1pt min.). @ -None done U/S interpreted by me (1pt. min.). @ -Bilateral lower extremity ultrasound negative for DVT What testing was considered but not performed or refused? (CT, X-rays, U/S, labs)? Why? @ -None What meds were considered but not given or refused? Why? @ -None Did you discuss the management of the patient with other professionals (professionals i.e. , PA, BRANCH RENTAL MANAGER, lab, RT, psych nurse, social worker psychiatric, social service assistant, teacher, correction officer reformatory, manager of case)? Give summary @ -No Was smoking cessation discussed for >3mins.? @ -No Was critical care preformed (if so, how long)? @ -No Were there social determinants of health that impacted care today? How? (Homelessness, low income, unemployed, alcoholism, drug addiction, transportation, low edu. Level, literacy, decrease access to med. care, long term, rehab)? @ -No Was there de-escalation of care discussed even if they declined (Discuss DNR or withdrawal of care, Hospice)? DNR status @ -No What co-morbidities impacted this encounter? (DM, HTN, Smoking, COPD, CAD, Cancer, CVA, ARF, Chemo, Hep., AIDS, mental health diagnosis, sleep apnea, morbid obesity)? @ -None Was patient admitted / discharged? Hospital course, mention meds given and route, prescriptions, significant lab abnormalities, going to OR and other pertinent info. @ -Left AGAINST MEDICAL ADVICE. 74-year-old male presenting for bilateral lower extremity edema/erythema. Patient does report he was scratched by his cat on the top of his left foot approximately 2 days ago. Neurovascularly intact to bilateral lower extremities however there is 3+ pitting edema with warmth and petechiae. There is an abrasion present on dorsal aspect of left foot with surrounding erythema and warmth. Laboratory studies remarkable for mild pancytopenia with a white blood cell count of 2, platelets 31. Hemoglobin 8.5. Calcium 7.0. BMP unremarkable for patient's age, troponin undetectable. Chest x-ray reveals linear opacity in right hilar region could reflect atelectasis or pneumonia. Bilateral lower extremity ultrasound negative for DVT. Discussed results with patient. I recommended that patient is admitted to the hospital to start on IV antibiotics for left foot cellulitis from cat scratch. It is unclear at this time if pancytopenia is new or chronic however I recommended oncology consult while patient is admitted to the hospital. Patient adamantly refuses admission to the hospital and states he would like to be discharged. He states he would like antibiotics sent to his pharmacy and he will follow-up with oncology in the morning. Patient verbalizes understanding of risks of leaving AMA in his current condition. Case was discussed with my ED attending Dr. Flores. Undiagnosed new problem with uncertain prognosis? @ -No Drug Therapy requiring intensive monitoring for toxicity (Heparin, Nitro, Insulin, Cardizem)? @ -No Were any procedures done? @ -No Diagnosis/symptom? @ -Left foot cellulitis, pancytopenia Acute, or Chronic, or Acute on Chronic? @ -Acute Uncomplicated (without systemic symptoms) or Complicated (systemic symptoms)? @ -Complicated Side effects of treatment? @ -No Exacerbation, Progression, or Severe Exacerbation? @ -No Poses a threat to life or bodily function? How? (Chest pain, [place], [place], pneumonia, PE, COPD, DKA, ARF, appy, cholecystitis, CVA, Diverticulitis, Homicidal, Suicidal, threat to staff... and all critical care pts) @ -Yes - Lab Data Result diagrams: 10/20/24 14:05 10/20/24 14:05 Lab Results 10/20/24 10/20/24 10/20/24 Range/Units 14:05 14:05 14:05 WBC 2.10 L (4.50-10.00) 10*3/uL RBC 2.41 L (4.40-5.60) 10*6/uL Hgb 8.5 L (13.0-17.0) g/dL Hct 24.9 L (39.6-50.0) % MCV 103.3 H (80.0-97.0) fL MCH 35.3 H (27.0-32.0) pg MCHC 34.1 (32.0-37.0) g/dL Plt Count 31 L (140-440) 10*3/uL MPV 13.3 H (9.5-12.2) fL Immature Gran % (Auto) 3.8 % Neutrophils % 80.9 % Lymphocytes % 11.0 % Monocytes % 3.3 % Eosinophils % 0.5 % Basophils % 0.5 % Immature Gran # 0.08 H (0.00-0.04) 10*3/uL Neutrophils # 1.70 L (1.80-7.70) 10*3/uL Lymphocytes # 0.23 L (0.90-5.00) 10*3/uL Monocytes # 0.07 L (0.20-1.00) 10*3/uL Eosinophils # 0.01 L (0.04-0.35) 10*3/uL Basophils # 0.01 (0.00-0.10) 10*3/uL Sodium 134 L (137-145) mmol/L Potassium 3.5 (3.5-5.1) mmol/L Chloride 103 (98-107) mmol/L Carbon Dioxide 24 (22-30) mmol/L Anion Gap 7 mmol/L BUN 31 H (9-20) mg/dL Creatinine 1.22 (0.66-1.25) mg/dL Est GFR (CKD-EPI)AfAm 67 (>60 ml/min/1.73 sqM) Est GFR (CKD-EPI)NonAf 58 (>60 ml/min/1.73 sqM) Glucose 122 H (74-99) mg/dL Plasma Lactic Acid Wyatt 1.1 (0.7-2.0) mmol/L Calcium 7.0 L (8.4-10.2) mg/dL Magnesium 2.1 (1.6-2.3) mg/dL Total Bilirubin 0.8 (0.2-1.3) mg/dL AST 22 (17-59) U/L ALT 15 (4-49) U/L Alkaline Phosphatase 155 H (38-126) U/L Troponin I (0.000-0.034) ng/mL NT-Pro-B Natriuret Pep 775 pg/mL Total Protein 5.9 L (6.3-8.2) g/dL Albumin 3.7 (3.5-5.0) g/dL 10/20/24 Range/Units 14:05 WBC (4.50-10.00) 10*3/uL RBC (4.40-5.60) 10*6/uL Hgb (13.0-17.0) g/dL Hct (39.6-50.0) % MCV (80.0-97.0) fL MCH (27.0-32.0) pg MCHC (32.0-37.0) g/dL Plt Count (140-440) 10*3/uL MPV (9.5-12.2) fL Immature Gran % (Auto) % Neutrophils % % Lymphocytes % % Monocytes % % Eosinophils % % Basophils % % Immature Gran # (0.00-0.04) 10*3/uL Neutrophils # (1.80-7.70) 10*3/uL Lymphocytes # (0.90-5.00) 10*3/uL Monocytes # (0.20-1.00) 10*3/uL Eosinophils # (0.04-0.35) 10*3/uL Basophils # (0.00-0.10) 10*3/uL Sodium (137-145) mmol/L Potassium (3.5-5.1) mmol/L Chloride (98-107) mmol/L Carbon Dioxide (22-30) mmol/L Anion Gap mmol/L BUN (9-20) mg/dL Creatinine (0.66-1.25) mg/dL Est GFR (CKD-EPI)AfAm (>60 ml/min/1.73 sqM) Est GFR (CKD-EPI)NonAf (>60 ml/min/1.73 sqM) Glucose (74-99) mg/dL Plasma Lactic Acid Wyatt (0.7-2.0) mmol/L Calcium (8.4-10.2) mg/dL Magnesium (1.6-2.3) mg/dL Total Bilirubin (0.2-1.3) mg/dL AST (17-59) U/L ALT (4-49) U/L Alkaline Phosphatase (38-126) U/L Troponin I <0.012 (0.000-0.034) ng/mL NT-Pro-B Natriuret Pep pg/mL Total Protein (6.3-8.2) g/dL Albumin (3.5-5.0) g/dL - EKG Data -: EKG Interpreted by Me EKG Comments: EKG reveals sinus bradycardia with no acute ST changes. Ventricular rate 54 bpm, MI interval 127, QRS duration 95, QT/QTc 467/452 Disposition Clinical Impression: Cellulitis of left foot, Pancytopenia Disposition: LEFT AGAINST MEDICAL ADVICE Prescriptions: clindamycin HCL 300 mg PO QID #40 cap Referrals: None,Stated [Primary Care Provider] - 1-2 days Time of Disposition: 16:17
[2024-10-20 14:25] LABS: Basophils # (A) 0.01 10*3/uL (0.00-0.10); Basophils % (A) 0.5 %; Eosinophils # (A) 0.01 10*3/uL (0.04-0.35); Eosinophils % (A) 0.5 %; HCT 24.9 % (39.6-50.0); HGB 8.5 g/dL (13.0-17.0); Lymphocytes # (A) 0.23 10*3/uL (0.90-5.00); Lymphocytes % (A) 11.0 %; MCH 35.3 pg (27.0-32.0); MCHC 34.1 g/dL (32.0-37.0); MCV 103.3 fL (80.0-97.0); Monocytes # (A) 0.07 10*3/uL (0.20-1.00); Monocytes % (A) 3.3 %; Neutrophils # (A) 1.70 10*3/uL (1.80-7.70); Neutrophils % (A) 80.9 %; RBC 2.41 10*6/uL (4.40-5.60); RDW 18.2 % (11.5-14.5); WBC 2.10 10*3/uL (4.50-10.00)
--- NOTE | 2024-10-20 14:31 | XR ---
EXAMINATION TYPE: XR chest 2V DATE OF EXAM: 10/20/2024 2:20 PM COMPARISON: Previous CT study 01/26/2024. CLINICAL INDICATION: Male, 74 years old with history of b/l leg swelling; [facility] TECHNIQUE: XR chest 2V Frontal and lateral views of the chest. FINDINGS: Lungs/Pleura: Linear opacity in the right hilar region which could reflect atelectasis and/or pneumon ia. No sizable pleural effusion. No pneumothorax. Pulmonary vascularity: Unremarkable. Heart/mediastinum: Cardiomegaly. Musculoskeletal: No acute osseous pathology. Other findings: None IMPRESSION: Linear opacity in the right hilar region which could reflect atelectasis and/or pneumonia. No sizable pleural effusion. [facility], , 10/20/2024 2:28 PM
[2024-10-20 14:38] LABS: ALT 15 U/L (4-49); AST 22 U/L (17-59); African American GFR (CKD) 67 (>60 ml/min/1.73 sqM); Albumin 3.7 g/dL (3.5-5.0); Alkaline Phosphatase 155 U/L (38-126); Anion Gap 7 mmol/L; Blood Urea Nitrogen 31 mg/dL (9-20); Calcium 7.0 mg/dL (8.4-10.2); Carbon Dioxide 24 mmol/L (22-30); Chloride 103 mmol/L (98-107); Glucose 122 mg/dL (74-99); Magnesium 2.1 mg/dL (1.6-2.3); Non-African American GFR(CKD) 58 (>60 ml/min/1.73 sqM); Potassium 3.5 mmol/L (3.5-5.1); Sodium 134 mmol/L (137-145); Total Protein 5.9 g/dL (6.3-8.2)
[2024-10-20 14:46] LABS: NT-Pro-B-Type Natriuretic Pept 775 pg/mL
--- NOTE | 2024-10-20 15:19 | US ---
EXAMINATION TYPE: US venous doppler duplex LE BI DATE OF EXAM: 10/20/2024 3:08 PM COMPARISON: NONE CLINICAL INDICATION: Male, 74 years old with history of b/l leg edema/redness; redness and edema afte r cat scratch TECHNIQUE: The lower extremity deep venous system is examined utilizing real time linear array sonog efrain with graded compression, doppler sonography and color-flow sonography. Grayscale, color doppler , spectral doppler imaging performed of the deep veins of the lower extremities FINDINGS: SIDE PERFORMED: Bilateral VESSELS IMAGED: Common Femoral Vein Deep Femoral Vein Greater Saphenous Vein * Femoral Vein Popliteal Vein Small Saphenous Vein * Proximal Calf Veins (* superficial vessels) Right Leg: Negative for DVT; There is normal flow, compressibility, vascular waveforms. Left Leg: Negative for DVT; There is normal flow, compressibility, vascular waveforms. Legal Practice Manager reports limited exam due to pitting edema IMPRESSION: No evidence for deep vein thrombosis. [facility], , 10/20/2024 3:17 PM
[2024-10-20 15:35] LABS: Platelet Count 31 10*3/uL (140-440)
== END 2024-10-20 16:33 | disposition left against medical advice (07) ==
LOC: EC 12:26
DX: L03.116 Cellulitis of left lower limb (principal); D61.818 Other pancytopenia; F17.200 Nicotine dependence, unspecified, uncomplicated; Z88.1 Allergy status to other antibiotic agents; Z88.2 Allergy status to sulfonamides
CPT/HCPCS: 36415; 71046; 80053; 83605; 83735; 83880; 84484; 85025; 93005; 93970; 99284